=== PATIENT | female | born 1960 | race Caucasian/White ===

== ENCOUNTER 2017-02-11 21:49 | Emergency (ER) | payer MEDICAID ==
[~2017-02-11] VITALS: Ht 162.6 cm; Wt 90.9 kg
[2017-02-11] MEDS ORDERED: OXCA300T PO (22:08)
[2017-02-11] MEDS ORDERED: ZOLP10 PO (22:08)
[2017-02-11] MEDS ORDERED: SIME120L PO (22:08)
[2017-02-11] MEDS ORDERED: PHEN-857 PO (22:08)
[2017-02-11 22:47] LABS: APPEARANCE,URINE CLOUDY (CLEAR); GLUCOSE, URINE (UA) NEGATIVE (NEGATIVE); KETONES,URINE NEGATIVE (NEGATIVE); OCCULT BLOOD,URINE LARGE (NEGATIVE); PH,URINE 5.5 (5.0-8.0); PROTEIN,URINE POS 1+ (NEGATIVE)
[2017-02-11 22:53] LABS: LEUKOCYTE ESTERASE ,URINE MODERATE (NEGATIVE); RBC,URINE 51-100 /HPF (0-2); SQUAMOUS EPITHELIAL CELL,UR Moderate /LPF (None Seen); WBC,URINE 26-50 /HPF (0-5)
[2017-02-11] MEDS ORDERED: LIDOCAINE HCL/PF 1% 2 ML VIAL IM ONE (23:15)
[2017-02-11] MEDS ORDERED: CefTRIAXone SODIUM 1 GM/VIAL IM ONE (23:15)
[2017-02-12 00:18] VITALS: BP 127/71
== END 2017-02-12 01:34 | disposition home or self-care (01) ==
LOC: EMS 21:56
DX: N30.91 Cystitis, unspecified with hematuria (principal); Z87.442 Personal history of urinary calculi
CPT/HCPCS: 81001; 87086; 96372; 99284; J0696; J3490

== ENCOUNTER 2017-05-11 15:11 | Emergency (ER) | payer MEDICAID ==
[~2017-05-11] VITALS: Ht 162.6 cm; Wt 106.8 kg
[~2017-05-11 15:11] MED LIST: OXCA300T PO; PHEN-857 PO; SIME120L PO; ZOLP10 PO
[2017-05-11] MEDS ORDERED: [UNRECOGNIZED DRUG - CODE] IM (15:48)
[2017-05-11] MEDS ORDERED: SULF1TAB42 PO (15:48)
[2017-05-11] MEDS ORDERED: OLAN5TAB2 PO (15:48)
[2017-05-11 17:08] LABS: APPEARANCE,URINE CLOUDY (CLEAR); GLUCOSE, URINE (UA) NEGATIVE (NEGATIVE); KETONES,URINE NEGATIVE (NEGATIVE); LEUKOCYTE ESTERASE ,URINE LARGE (NEGATIVE); PROTEIN,URINE SEE CONFIRM (NEGATIVE)
[2017-05-11 17:11] LABS: ADD UA MICROSCOPIC YES; OCCULT BLOOD,URINE MODERATE (NEGATIVE); SULFOSALICYLIC ACID,URINE 2+ (Negative); WBC,URINE >100 /HPF (0-5)
[2017-05-11 17:12] LABS: SQUAMOUS EPITHELIAL CELL,UR Few /LPF (None Seen)
[2017-05-11] MEDS ORDERED: PHENAZOPYRIDINE HCL 100 MG TABLET PO ONE (17:15)
[2017-05-11] MEDS ORDERED: NITROFURANTOIN/NITROFURAN MAC 100 MG CAPSULE [MACROBID] PO ONE (17:15)
[2017-05-11 17:37] VITALS: BP 126/78
== END 2017-05-11 18:17 | disposition home or self-care (01) ==
LOC: EMS 15:16
DX: N39.0 Urinary tract infection, site not specified (principal); F25.9 Schizoaffective disorder, unspecified; J44.9 Chronic obstructive pulmonary disease, unspecified; F17.200 Nicotine dependence, unspecified, uncomplicated; Z87.442 Personal history of urinary calculi; Z79.899 Other long term (current) drug therapy
CPT/HCPCS: 87086; 99284; 99406

== ENCOUNTER 2018-02-05 14:32 | Inpatient (IN) | payer MEDICAID ==
[~2018-02-05] VITALS: Ht 170.2 cm; Wt 81.6 kg
[~2018-02-05 14:32] MED LIST changes: +OLAN5TAB2 PO; -PHEN-857 PO; +SULF1TAB42 PO; -ZOLP10 PO; +ZOLP10TA7 PO; +[UNRECOGNIZED DRUG - CODE] IM
[2018-02-05 14:53] VITALS: BP 121/85
[2018-02-05] MEDS ORDERED: HALOPERIDOL 5 MG TABLET PO PRN (15:30)
[2018-02-05] MEDS ORDERED: ZOLPIDEM TARTRATE 10 MG TABLET PO PRN (15:30)
[2018-02-05] MEDS ORDERED: NITR50 PO (16:00)
[2018-02-05] MEDS ORDERED: OLAN5TAB2 PO (16:00)
[2018-02-05] MEDS ORDERED: RISPC25 IM (16:00)
[2018-02-05 16:33] VITALS: BP 140/95
[2018-02-05 20:06] VITALS: BP 138/84
[2018-02-06 07:30] LABS: BASOPHILS % (AUTO) 0.9 % (0.0-2.0); EOSINOPHILS % (AUTO) 3.9 % (1.0-6.0); HEMOGLOBIN 13.3 g/dL (12.0-16.0); LYMPHOCYTES # (AUTO) 2.8 K/uL (1.0-4.8); LYMPHOCYTES % (AUTO) 32.4 % (22.0-44.0); MEAN CORPUSCULAR HEMOGLOBIN 29.8 pg (26.0-34.0); MEAN CORPUSCULAR HGB CONC 33.4 G/dL (31.0-37.0); MEAN CORPUSCULAR VOLUME 89 fL (80-100); MONOCYTES # (AUTO) 0.4 K/uL (0.1-1.0); MONOCYTES % (AUTO) 4.8 % (2.0-9.0); NEUTROPHILS # (AUTO) 4.9 K/uL (1.8-7.7); PLATELET COUNT (AUTO) 314 K/uL (150-450); RED BLOOD CELL COUNT(AUTO) 4.47 MIL/uL (4.00-5.20); RED CELL DISTRIBUTION WIDTH 14.1 % (11.5-14.5)
[2018-02-06 08:06] LABS: ALANINE AMINOTRANSFERASE 28 U/L (12-78); ALBUMIN 3.1 g/dL (3.4-5.0); ALKALINE PHOSPHATASE 86 U/L (46-116); ANION GAP 8 mmol/L (8-16); ASPARTATE AMINOTRANSFERASE 19 U/L (15-37); BILIRUBIN,TOTAL 0.2 mg/dL (0.1-1.0); CALCIUM, TOTAL 9.4 mg/dL (8.8-10.5); CARBON DIOXIDE 26 mmol/L (22-29); CHLORIDE 109 mmol/L (98-107); CHOL/HDL RATIO 4.3 (3.9-5.7); CHOLESTEROL 169 mg/dL (131-200); CREATININE 0.78 mg/dL (0.60-1.30); FREE T4 (FREE THYROXINE) 1.03 ng/dL (0.76-1.46); GLOMERULAR FILTR. RATE CALC > 60 mL/min (>60); GLUCOSE,RANDOM 123 mg/dL (70-110); HDL CHOLESTEROL 39 mg/dL (40-60); LDL CHOL (CALC.) 102 mg/dL (0-130); POTASSIUM 4.4 mmol/L (3.5-5.1); SODIUM SERUM 143 mmol/L (136-145); THYROID STIMULATING HORMONE 1.37 uIU/mL (0.36-3.74); TOTAL PROTEIN, SERUM 6.2 g/dL (6.4-8.2); TRIGLYCERIDES 142 mg/dL (15-150); UREA NITROGEN, BLOOD 15 mg/dL (7-18)
[2018-02-06 08:21] VITALS: BP 123/72
[2018-02-06] MEDS: OLANZapine 5 MG RAPDIS TABLET PO SCH ×2 (13:00→17:00)
[2018-02-07] MEDS: OLANZapine 5 MG RAPDIS TABLET PO SCH ×3 (08:17→16:05)
[2018-02-07 16:33] VITALS: BP 126/68
[2018-02-08 08:16] VITALS: BP 119/66
[2018-02-08] MEDS: OLANZapine 5 MG RAPDIS TABLET PO SCH ×3 (08:30→17:00)
[2018-02-08 16:20] VITALS: BP 122/77
[2018-02-09] MEDS: OLANZapine 5 MG RAPDIS TABLET PO SCH ×3 (08:11→16:09)
[2018-02-09 08:33] VITALS: BP 113/85
[2018-02-09] MEDS: LORazepam 2 MG TABLET PO PRN ×2 (10:00→16:10)
[2018-02-09 16:08] VITALS: BP 119/86
[2018-02-10 06:09] VITALS: BP 117/68
[2018-02-10 08:25] VITALS: BP 126/68
[2018-02-10] MEDS: OLANZapine 5 MG RAPDIS TABLET PO SCH ×3 (09:22→16:47)
[2018-02-10] MEDS: LORazepam 2 MG TABLET PO PRN ×2 (09:44→16:47)
[2018-02-10 17:07] VITALS: BP 111/70
[2018-02-11 06:00] VITALS: BP 124/68
[2018-02-11] MEDS: LORazepam 2 MG TABLET PO PRN ×2 (06:30→12:31)
[2018-02-11] MEDS ORDERED: ACETAMINOPHEN 325 MG TABLET PO PRN (07:15)
[2018-02-11] MEDS ORDERED: IBUPROFEN 600 MG TABLET PO PRN (07:15)
[2018-02-11] MEDS: OLANZapine 5 MG RAPDIS TABLET PO SCH ×3 (08:46→17:11)
[2018-02-11] MEDS ORDERED: RisperiDONE MICROSPHERES 50 MG/2 ML SYRINGE IM SCH (13:00)
== END 2018-02-11 17:45 | disposition home or self-care (01) | DRG 753 ==
LOC: B3A 15:39
PROVIDERS: ADMIT Psychiatry & Neurology Child & Adolescent Psychiatry; ATTEND Psychiatry & Neurology Child & Adolescent Psychiatry
DX: F31.2 Bipolar disorder, current episode manic severe with psychotic features (principal); E44.1 Mild protein-calorie malnutrition; J44.9 Chronic obstructive pulmonary disease, unspecified; Z87.442 Personal history of urinary calculi; F41.9 Anxiety disorder, unspecified; Z68.28 Body mass index [BMI] 28.0-28.9, adult
CPT/HCPCS: 83036; 84439; 84443; J2794